=== PATIENT | male | born 1970 | race Asian ===

== ENCOUNTER 2018-08-14 09:16 | Emergency (ER) | payer OTHER ==
[~2018-08-14] VITALS: Ht 175.3 cm; Wt 94.9 kg
[2018-08-14 09:18] VITALS: Ht 175.3 cm; Wt 94.9 kg
[2018-08-14 10:15] VITALS: BP 132/80
== END 2018-08-14 10:25 | disposition home or self-care (01) ==
LOC: ED 09:16
DX: S62.201A Unspecified fracture of first metacarpal bone, right hand, initial encounter for closed fracture (principal); I10 Essential (primary) hypertension; W50.0XXA Accidental hit or strike by another person, initial encounter; Y93.89 Activity, other specified; Y92.89 Other specified places as the place of occurrence of the external cause; Y99.8 Other external cause status